=== PATIENT | female | born 1965 | race Two or more races ===

== ENCOUNTER 2020-05-15 21:11 | Observation (INO) | payer SELFPAY ==
[~2020-05-15] VITALS: Ht 157.5 cm; Wt 95.0 kg
[~2020-05-15 21:11] MED LIST: AMLO-187 PO; ATOR20TA58 PO; HYDR-3164 PO; LEVO25TA4 PO; LOSA100T14 PO; METF500T16 PO; NAPR-682 PO
[2020-05-15] MEDS ORDERED: ASPIRIN CHEWABLE 81 MG TABLET. PO ONE (21:30)
[2020-05-15 21:38] LABS: BASO # 0.1 x10^3/uL (0.0-0.2); BASO % 1 % (0-3); EOS # 0.2 x10^3/uL (0.0-0.7); EOS % 2 % (0-3); HEMOGLOBIN 11.9 g/dL (12.0-15.5); LYMPH # 4.5 x10^3/uL (1.0-4.8); LYMPH % 44 % (24-48); MEAN CORPUSCULAR HEMOGLOBIN 27 pg (25-35); MEAN CORPUSCULAR HGB CONC 33 g/dL (31-37); MEAN CORPUSCULAR VOLUME 81 fL (79-100); MONO # 0.7 x10^3/uL (0.0-1.1); MONO % 7 % (0-9); NEUT # 4.6 x10^3/uL (1.8-7.7); NEUT % 46 % (31-73); PLATELET COUNT 207 x10^3/uL (140-400); RED BLOOD COUNT 4.44 x10^6/uL (3.50-5.40); RED CELL DISTRIBUTION WIDTH 15.1 % (11.5-14.5); WHITE BLOOD COUNT 10.1 x10^3/uL (4.0-11.0)
[2020-05-15 21:50] LABS: CALCIUM 9.4 mg/dL (8.5-10.1); CREATININE 1.1 mg/dL (0.6-1.0); GFR 51.4; POTASSIUM 3.4 mmol/L (3.5-5.1)
[2020-05-15 21:55] LABS: ALBUMIN/GLOBULIN RATIO 0.9 (1.0-1.7); MAGNESIUM 2.1 mg/dL (1.8-2.4); TOTAL BILIRUBIN 0.5 mg/dL (0.2-1.0); TOTAL PROTEIN 8.7 g/dL (6.4-8.2)
[2020-05-15] MEDS ORDERED: LABETALOL 20 MG/4 ML DISP.SYRIN. IVP ONE (22:00)
--- NOTE | 2020-05-15 22:03 | RAD ---
Exam performed: One view chest. Indication: Reason: chest pain / Spl. Instructions: / History: Date of Service: 05/15/2020 9:45 PM Comparison: None available. Single AP upright portable view chest findings: Cardiomediastinal silhouette is within limits of normal. No acute infiltrates, effusion or pneumotho rax is detected. The bony structures are normal. Impression: No acute cardiopulmonary process is detected. Electronically signed by: Linda Jacobo MD (05/15/2020 10:00 PM) [facility]
--- NOTE | 2020-05-15 23:05 | PHYS DOC ---
Past Medical History Past Medical History: Hypertension Past Surgical History: Cholecystectomy, Hysterectomy Smoking Status: Never Smoker Alcohol Use: None Drug Use: None Adult General Chief Complaint Chief Complaint: CHEST PAIN HPI HPI Patient is a 55 year old female with a known possible history of hypertension presenting emergency department complaining of new onset of chest pain. Patient states that she is having intermittent episodes of left anterior chest pain and left back pain for the past 3 months. However over the last 3 days feels that this is increased in severity. Patient states he woke up from sleep approximate 3 hours ago with worsening pain in left back rating to the left anterior chest. He also states that he has been associated with episodes of dizziness and nausea . Denies any fever, chills, cough. Patient states that she is been taking her antihypertensives but still noting elevated blood pressure. Review of Systems Review of Systems Constitutional: Denies fever or chills [] Eyes: Denies change in visual acuity, redness, or eye pain [] HENT: Denies nasal congestion or sore throat [] Respiratory: Denies cough or shortness of breath [] Cardiovascular: No additional information not addressed in HPI [] GI: Denies abdominal pain, nausea, vomiting, bloody stools or diarrhea [] : Denies dysuria or hematuria [] Musculoskeletal: Denies back pain or joint pain [] Integument: Denies rash or skin lesions [] Neurologic: Denies headache, focal weakness or sensory changes [] Endocrine: Denies polyuria or polydipsia [] All other systems were reviewed and found to be within normal limits, except as documented in this note. Current Medications Current Medications Current Medications Medications (Trade) Dose Ordered Sig/Diana Start Time Stop Time Status Last Admin Dose Admin Aspirin (Aspirin Chewable) 324 mg 1X ONCE 05/15/20 21:30 05/15/20 21:31 DC 05/15/20 21:44 324 MG Fentanyl Citrate (Fentanyl 2ml Vial) 50 mcg PRN Q1HR PRN 05/16/20 01:00 05/16/20 16:42 DC Info (CONTRAST GIVEN -- Rx MONITORING) 1 each PRN DAILY PRN 05/15/20 23:15 05/16/20 16:42 DC Iohexol (Omnipaque 350 Mg/ml) 80 ml 1X ONCE 05/15/20 23:15 05/15/20 23:16 DC 05/15/20 01:08 80 ML Labetalol HCl (Normodyne Iv Push) 10 mg 1X ONCE 05/15/20 22:00 05/15/20 22:01 DC 05/15/20 22:03 10 MG Ondansetron HCl (Zofran) 4 mg PRN Q8HRS PRN 05/16/20 01:00 05/16/20 16:42 DC Allergies Allergies Allergies Coded Allergies Type Severity Reaction Last Updated Verified No Known Drug Allergies 02/22/16 No Physical Exam Physical Exam Constitutional: Well developed, well nourished, no acute distress, non-toxic appearance. [] HENT: Normocephalic, atraumatic, bilateral external ears normal, oropharynx moist, no oral exudates, nose normal. [] Eyes: PERRLA, EOMI, conjunctiva normal, no discharge. [] Neck: Normal range of motion, no tenderness, supple, no stridor. [] Cardiovascular:Heart rate regular rhythm, no murmur [] Lungs & Thorax: Bilateral breath sounds clear to auscultation [] Abdomen: Bowel sounds normal, soft, no tenderness, no masses, no pulsatile masses. [] Skin: Warm, dry, no erythema, no rash. [] Back: No tenderness, no CVA tenderness. [] Extremities: No tenderness, no cyanosis, no clubbing, ROM intact, no edema. [] Neurologic: Alert and oriented X 3, normal motor function, normal sensory function, no focal deficits noted. [] Psychologic: Affect normal, judgement normal, mood normal. [] Current Patient Data Vital Signs Vital Signs Date Time Temp Pulse Resp B/P (MAP) Pulse Ox O2 Delivery O2 Flow Rate FiO2 05/16/20 01:20 70 16 161/70 (100) 96 Room Air 05/15/20 21:19 98.2 98.2 Lab Values Laboratory Tests Test 05/15/20 21:28 05/15/20 22:13 05/16/20 00:24 White Blood Count 10.1 x10^3/uL (4.0-11.0) Red Blood Count 4.44 x10^6/uL (3.50-5.40) Hemoglobin 11.9 g/dL (12.0-15.5) L Hematocrit 36.0 % (36.0-47.0) Mean Corpuscular Volume 81 fL (79-100) Mean Corpuscular Hemoglobin 27 pg (25-35) Mean Corpuscular Hemoglobin Concent 33 g/dL (31-37) Red Cell Distribution Width 15.1 % (11.5-14.5) H Platelet Count 207 x10^3/uL (140-400) Neutrophils (%) (Auto) 46 % (31-73) Lymphocytes (%) (Auto) 44 % (24-48) Monocytes (%) (Auto) 7 % (0-9) Eosinophils (%) (Auto) 2 % (0-3) Basophils (%) (Auto) 1 % (0-3) Neutrophils # (Auto) 4.6 x10^3/uL (1.8-7.7) Lymphocytes # (Auto) 4.5 x10^3/uL (1.0-4.8) Monocytes # (Auto) 0.7 x10^3/uL (0.0-1.1) Eosinophils # (Auto) 0.2 x10^3/uL (0.0-0.7) Basophils # (Auto) 0.1 x10^3/uL (0.0-0.2) D-Dimer (Yue) 0.88 ug/mlFEU (0.00-0.50) H Sodium Level 142 mmol/L (136-145) Potassium Level 3.4 mmol/L (3.5-5.1) L Chloride Level 103 mmol/L (98-107) Carbon Dioxide Level 26 mmol/L (21-32) Anion Gap 13 (6-14) Blood Urea Nitrogen 18 mg/dL (7-20) Creatinine 1.1 mg/dL (0.6-1.0) H Estimated GFR (Cockcroft-Gault) 51.4 BUN/Creatinine Ratio 16 (6-20) Glucose Level 115 mg/dL (70-99) H Calcium Level 9.4 mg/dL (8.5-10.1) Magnesium Level 2.1 mg/dL (1.8-2.4) Total Bilirubin 0.5 mg/dL (0.2-1.0) Aspartate Amino Transferase (AST) 25 U/L (15-37) Alanine Aminotransferase (ALT) 31 U/L (14-59) Alkaline Phosphatase 126 U/L (46-116) H Troponin I Quantitative < 0.017 ng/mL (0.000-0.055) < 0.017 ng/mL (0.000-0.055) Total Protein 8.7 g/dL (6.4-8.2) H Albumin 4.0 g/dL (3.4-5.0) Albumin/Globulin Ratio 0.9 (1.0-1.7) L Lipase 98 U/L (73-393) POC Troponin I 0.02 ng/ml (<0.08) Laboratory Tests 05/15/20 21:28 Laboratory Tests 05/15/20 21:28 EKG EKG [] Radiology/Procedures Radiology/Procedures [] Course & Med Decision Making Course & Med Decision Making Pertinent Labs and Imaging studies reviewed. (See chart for details) 55-year-old female presenting with new onset of left anterior chest pain. Did h ave some pleurisy. No significant left anterior chest wall tenderness. Appears well but noted to have acute hypertension. Will obtain labs, ACS work-up make sure there is no evidence of hypertensive emergency, ACS or pulmonary embolism. Dragon Disclaimer Dragon Disclaimer This electronic medical record was generated, in whole or in part, using a voice recognition dictation system. Departure Departure Disposition: 09 ADMITTED INPT THIS HOSP Condition: GOOD Referrals: NO PCP (PCP) Scripts Metoprolol Tartrate (METOPROLOL TARTRATE) 25 Mg Tablet 1 TAB PO BID for HTN, palpitations for 30 Days, #60 TAB 5 Refills Prov: EMILY BARRIOS MD 05/16/20 ADITHYA NASCIMENTO MD May 15, 2020 23:05
[2020-05-15] MEDS ORDERED: IOHEXOL 350 MG/ML 100 ML VIAL. IV ONE (23:15)
[2020-05-15] MEDS ORDERED: CONTRAST GIVEN. MC PRN (23:15)
--- NOTE | 2020-05-15 23:51 | RAD ---
Exam: CT of chest with contrast INDICATION: Chest pain TECHNIQUE: Sequential axial images through the chest obtained following the administration of 80 mL o f Omni 350 IV contrast. Sagittal and coronal reformatted images were reconstructed from the axial felix a and reviewed. 3-D reformatted images were reconstructed from the axial data and reviewed. Comparisons: Chest x-ray same day FINDINGS: Visualized portions of the thyroid are unremarkable. No enlarged mediastinal lymph nodes are identifi ed. Heart size is normal. No pericardial effusion. Thoracic aorta has a normal course and caliber. Pulmon julián artery is not enlarged. No pulmonary embolus identified within the main, lobar or segmental pulmo nary airway is patent. Airways are patent. No No consolidation or pneumothorax. No suspicious pulmonary nodules. No pleural effusion or thickening. No suspicious osseous lesions or acute fractures. IMPRESSION: No pulmonary embolus identified within the main, lobar or segmental pulmonary arteries. Exposure: One or more of the following in the visualized dose reduction techniques were utilized for this examination: 1. Automated exposure control 2. Adjustment of the MA and/or KV according to patient size 3. Use of iterative of reconstructive technique Electronically signed by: Yamile Valentino MD (05/15/2020 11:49 PM) [facility]
[2020-05-16] MEDS ORDERED: fentaNYL PF VIAL 100 MCG/2 ML VIAL IV PRN (01:00)
[2020-05-16] MEDS ORDERED: ONDANSETRON PF 4 MG/2 ML VIAL. IV PRN (01:00)
[2020-05-16 04:00] VITALS: BP 135/72
[2020-05-16 07:00] VITALS: BP 139/65
[2020-05-16] MEDS ORDERED: DEXTROSE 50% 25 GM / 50ML DISP.SYRIN. IV PRN (08:15)
--- NOTE | 2020-05-16 08:18 | PDOC1 ---
History and Physical Date of Admission Date of Admission DATE: 05/16/20 TIME: 08:11 Identification/Chief Complaint Chief Complaint Chest pain Source Source: Patient History of Present Illness History of Present Illness Ms Knowles is a 54 year [id number] female past medical history hypertension presents with a chief complaint of chest pain. Patient states that she is having intermittent episodes of left anterior chest pain and left back pain for the past 3 months. However over the last 3 days feels that this is increased in severity. Patient states he woke up from sleep approximate 3 hours ago with worsening pain in left back rating to the left anterior chest. He also states that he has been associated with episodes of dizziness and nausea. Denies any fever, chills, cough. Patient states that she is been taking her antihypertensives but still noting elevated blood pressure. Her pain on this admission is positional and worsens with movement of her arms. She was seen and treated for the same on 03/15/2020 EKG with Sinus rhythm rate of 94 bpm normal intervals leftward axis no significant ST segment changes no T wave inversions. Compared to prior no longer in SVT. Labs WNL except d dimer was elevated. Chest radiograph with no acute abnormality. CTPA negative for acute PE Blood pressure 215/142. Improved with labetalol Admitted overnight for observation and 3 - troponins. Chest pain resolved. Back Pain is improved with application of Lidoderm patch. She notes she has outpatient follow-up with cardiology tomorrow. I discussed initiating a beta- gabriele low-dose metoprolol 12.5 mg twice daily. Past Medical History Cardiovascular: HTN Past Surgical History Past Surgical History: Hysterectomy Family History Family History: Hypertension Social History Smoke: No ALCOHOL: none Drugs: None Current Medications Current Medications Current Medications Aspirin (Aspirin Chewable) 324 mg 1X ONCE PO Last administered on 05/15/20at 21:44; Start 05/15/20 at 21:30; Stop 05/15/20 at 21:31; Status DC Labetalol HCl (Normodyne Iv Push) 10 mg 1X ONCE IVP Last administered on 05/15/20at 22:03; Start 05/15/20 at 22:00; Stop 05/15/20 at 22:01; Status DC Iohexol (Omnipaque 350 Mg/ml) 80 ml 1X ONCE IV Last administered on 05/15/20at 01:08; Start 05/15/20 at 23:15; Stop 05/15/20 at 23:16; Status DC Info (CONTRAST GIVEN -- Rx MONITORING) 1 each PRN DAILY PRN MC SEE COMMENTS; Start 05/15/20 at 23:15; Stop 05/17/20 at 23:14 Ondansetron HCl (Zofran) 4 mg PRN Q8HRS PRN IV NAUSEA/VOMITING; Start 05/16/20 at 01:00; Stop 05/17/20 at 00:59 Fentanyl Citrate (Fentanyl 2ml Vial) 50 mcg PRN Q1HR PRN IV PAIN; Start 05/16/20 at 01:00; Stop 05/17/20 at 00:59 Active Scripts Active [place] 5-325 Tablet (Acetaminophen/Hydrocodone Bitart) 1 Each Tablet 1 Tab PO PRN Q6HRS PRN Anaprox Ds (Naproxen Sodium) 550 Mg Tablet 550 Mg PO Q12HR Metformin Hcl 500 Mg Tablet 500 Mg PO BIDWMEALS 90 Days Levothyroxine Sodium 25 Mcg Tablet 25 Mcg PO DAILY06 90 Days Amlodipine Besylate 10 Mg Tablet 10 Mg PO DAILY 90 Days Atorvastatin Calcium 20 Mg Tablet 20 Mg PO QHS 90 Days Reported Losartan Potassium 100 Mg Tablet 100 Mg PO DAILY Allergies Allergies: Coded Allergies: No Known Drug Allergies (Unverified , 02/22/16) ROS General: No: Chills, Night Sweats, Fatigue, Malaise, Appetite, Other PSYCHOLOGICAL ROS: No: Anxiety, Behavioral Disorder, Concentration difficultie, Decreased libido, Depression, Disorientation, Hallucinations, Hostility, Irritablity, Memory difficulties, Mood Swings, Obsessive thoughts, Physical abuse, Sexual abuse, Sleep disturbances, Suicidal ideation, Other Eyes: No Blurry vision, No Decreased vision, No Double vision, No Dry eyes, No Excessive tearing, No Eye Pain, No Itchy Eyes, No Loss of vision, No Photophobia, No Scotomata, No Uses contacts, No Uses glasses, No Other HEENT: No: Heacaches, Visual Changes, Hearing change, Nasal congestion, Nasal discharge, Oral lesions, Sinus pain, Sore Throat, Epistaxis, Sneezing, Snoring, Tinnitus, Vertigo, Vocal changes, Other ALLERGY AND IMMUNOLOGY: No: Hives, Insect Bite Sensitivity, Itchy/Watery Eyes, Nasal Congestion, Post Nasal Drip, Seasonal Allergies, Other Hematological and Lymphatic: No: Bleeding Problems, Blood Clots, Blood Transfusions, Brusing, Night Sweats, Pallor, Swollen Lymph Nodes, Other ENDOCRINE: No: Breast Changes, Galactorrhea, Hair Pattern Changes, Hot Flashes, Malaise/lethargy, Mood Swings, Palpitations, Polydipsia/polyuria, Skin Changes, Temperature Intolerance, Unexpected Weight Changes, Other Breast: No New/Changing Breast Lumps, No Nipple changes, No Nipple discharge, No Other Respiratory: No: Cough, Hemoptysis, Orthopnea, Pleuritic Pain, Shortness of breath, SOB with excertion, Sputum Changes, Stridor, Tachypnea, Wheezing, Other Cardiovascular: yes Chest Pain; No Palpitations, No Orthopnea, No Paroxysmal Noc. Dyspnea, No Edema, No Lt Headedness, No Other Gastrointestinal: No Nausea, No Vomiting, No Abdominal Pain, No Diarrhea, No Constipation, No Melena, No Hematochezia, No Other Genitourinary: No Dysuria, No Frequency, No Incontinence, No Hematuria, No Retention, No Discharge, No Urgency, No Pain, No Flank Pain, No Other, No , No , No , No , No , No , No Musculoskeletal: No Gait Disturbance, No Joint Pain, No Joint Stiffness, No Joint Swelling, No Muscle Pain, No Muscular Weakness, No Pain In:, No Swelling In:, No Other Neurological: No Behavorial Changes, No Bowel/Bladder ControlChng, No Confusion, No Dizziness, No Gait Disturbance, No Headaches, No Impaired Coord/balance, No Memory Loss, No Numbness/Tingling, No Seizures, No Speech Problems, No Tremors, No Visual Changes, No Weakness, No Other Skin: No Dry Skin, No Eczema, No Hair Changes, No Lumps, No Mole Changes, No Mottling, No Nail Changes, No Pruritus, No Rash, No Skin Lesion Changes, No Other, No Acne Physical Exam General: Alert, Oriented X3, Cooperative, No acute distress HEENT: Atraumatic, PERRLA, EOMI, Mucous membr. moist/pink Lungs: Clear to auscultation, Normal air movement Abdomen: Normal bowel sounds, Soft, No tenderness, No hepatosplenomegaly, No masses Rectal Exam: not examined Extremities: No clubbing, No cyanosis, No edema, Normal pulses, No tenderness/ swelling Skin: No rashes, No breakdown, No significant lesion Neuro: Normal gait, Normal speech, Strength at 5/5 X4 ext, Normal tone, Sensation intact, Cranial nerves 3-12 NL, Reflexes 2+ Psych/Mental Status: Mental status NL, Mood NL Vitals Vitals Vital Signs Date Time Temp Pulse Resp B/P (MAP) Pulse Ox O2 Delivery O2 Flow Rate FiO2 05/16/20 05:34 Room Air 05/16/20 04:00 69 18 135/72 (93) 99 05/15/20 21:19 98.2 98.2 Labs Labs Laboratory Tests Test 05/15/20 21:28 05/15/20 22:13 05/16/20 00:24 05/16/20 03:15 White Blood Count 10.1 x10^3/uL (4.0-11.0) Red Blood Count 4.44 x10^6/uL (3.50-5.40) Hemoglobin 11.9 g/dL (12.0-15.5) Hematocrit 36.0 % (36.0-47.0) Mean Corpuscular Volume 81 fL (79-100) Mean Corpuscular Hemoglobin 27 pg (25-35) Mean Corpuscular Hemoglobin Concent 33 g/dL (31-37) Red Cell Distribution Width 15.1 % (11.5-14.5) Platelet Count 207 x10^3/uL (140-400) Neutrophils (%) (Auto) 46 % (31-73) Lymphocytes (%) (Auto) 44 % (24-48) Monocytes (%) (Auto) 7 % (0-9) Eosinophils (%) (Auto) 2 % (0-3) Basophils (%) (Auto) 1 % (0-3) Neutrophils # (Auto) 4.6 x10^3/uL (1.8-7.7) Lymphocytes # (Auto) 4.5 x10^3/uL (1.0-4.8) Monocytes # (Auto) 0.7 x10^3/uL (0.0-1.1) Eosinophils # (Auto) 0.2 x10^3/uL (0.0-0.7) Basophils # (Auto) 0.1 x10^3/uL (0.0-0.2) D-Dimer (Yue) 0.88 ug/mlFEU (0.00-0.50) Sodium Level 142 mmol/L (136-145) Potassium Level 3.4 mmol/L (3.5-5.1) Chloride Level 103 mmol/L (98-107) Carbon Dioxide Level 26 mmol/L (21-32) Anion Gap 13 (6-14) Blood Urea Nitrogen 18 mg/dL (7-20) Creatinine 1.1 mg/dL (0.6-1.0) Estimated GFR (Cockcroft-Gault) 51.4 BUN/Creatinine Ratio 16 (6-20) Glucose Level 115 mg/dL (70-99) Calcium Level 9.4 mg/dL (8.5-10.1) Magnesium Level 2.1 mg/dL (1.8-2.4) Total Bilirubin 0.5 mg/dL (0.2-1.0) Aspartate Amino Transf (AST/SGOT) 25 U/L (15-37) Alanine Aminotransferase (ALT/SGPT) 31 U/L (14-59) Alkaline Phosphatase 126 U/L (46-116) Troponin I Quantitative < 0.017 ng/mL (0.000-0.055) < 0.017 ng/mL (0.000-0.055) < 0.017 ng/mL (0.000-0.055) Total Protein 8.7 g/dL (6.4-8.2) Albumin 4.0 g/dL (3.4-5.0) Albumin/Globulin Ratio 0.9 (1.0-1.7) Lipase 98 U/L (73-393) Bedside Troponin I 0.02 ng/ml (<0.08) Laboratory Tests Test 05/15/20 21:28 05/15/20 22:13 05/16/20 00:24 05/16/20 03:15 White Blood Count 10.1 x10^3/uL (4.0-11.0) Red Blood Count 4.44 x10^6/uL (3.50-5.40) Hemoglobin 11.9 g/dL (12.0-15.5) Hematocrit 36.0 % (36.0-47.0) Mean Corpuscular Volume 81 fL (79-100) Mean Corpuscular Hemoglobin 27 pg (25-35) Mean Corpuscular Hemoglobin Concent 33 g/dL (31-37) Red Cell Distribution Width 15.1 % (11.5-14.5) Platelet Count 207 x10^3/uL (140-400) Neutrophils (%) (Auto) 46 % (31-73) Lymphocytes (%) (Auto) 44 % (24-48) Monocytes (%) (Auto) 7 % (0-9) Eosinophils (%) (Auto) 2 % (0-3) Basophils (%) (Auto) 1 % (0-3) Neutrophils # (Auto) 4.6 x10^3/uL (1.8-7.7) Lymphocytes # (Auto) 4.5 x10^3/uL (1.0-4.8) Monocytes # (Auto) 0.7 x10^3/uL (0.0-1.1) Eosinophils # (Auto) 0.2 x10^3/uL (0.0-0.7) Basophils # (Auto) 0.1 x10^3/uL (0.0-0.2) D-Dimer (Yue) 0.88 ug/mlFEU (0.00-0.50) Sodium Level 142 mmol/L (136-145) Potassium Level 3.4 mmol/L (3.5-5.1) Chloride Level 103 mmol/L (98-107) Carbon Dioxide Level 26 mmol/L (21-32) Anion Gap 13 (6-14) Blood Urea Nitrogen 18 mg/dL (7-20) Creatinine 1.1 mg/dL (0.6-1.0) Estimated GFR (Cockcroft-Gault) 51.4 BUN/Creatinine Ratio 16 (6-20) Glucose Level 115 mg/dL (70-99) Calcium Level 9.4 mg/dL (8.5-10.1) Magnesium Level 2.1 mg/dL (1.8-2.4) Total Bilirubin 0.5 mg/dL (0.2-1.0) Aspartate Amino Transf (AST/SGOT) 25 U/L (15-37) Alanine Aminotransferase (ALT/SGPT) 31 U/L (14-59) Alkaline Phosphatase 126 U/L (46-116) Troponin I Quantitative < 0.017 ng/mL (0.000-0.055) < 0.017 ng/mL (0.000-0.055) < 0.017 ng/mL (0.000-0.055) Total Protein 8.7 g/dL (6.4-8.2) Albumin 4.0 g/dL (3.4-5.0) Albumin/Globulin Ratio 0.9 (1.0-1.7) Lipase 98 U/L (73-393) Bedside Troponin I 0.02 ng/ml (<0.08) Images Images Chest radiograph: Cardiomediastinal silhouette is within limits of normal. No acute infiltrates, effusion or pneumothorax is detected. The bony structures are normal. Impression: No acute cardiopulmonary process is detected. CTPA: Visualized portions of the thyroid are unremarkable. No enlarged mediastinal lymph nodes are identified. Heart size is normal. No pericardial effusion. Thoracic aorta has a normal course and caliber. Pulmonary artery is not enlarged. No pulmonary embolus identified within the main, lobar or segmental pulmonary airway is patent. Airways are patent. No No consolidation or pneumothorax. No suspicious pulmonary nodules. No pleural effusion or thickening. No suspicious osseous lesions or acute fractures. IMPRESSION: No pulmonary embolus identified within the main, lobar or segmental pulmonary arteries. VTE Prophylaxis Ordered VTE Prophylaxis Devices: No VTE Pharmacological Prophylaxi: Yes Assessment/Plan Assessment/Plan A/P: Hypertensive emergency - improved with IV labetalol. Amlodipine inadequate, added metoprolol with improvement. Diabetes - newly diagnosed. If no need for contrast dye metformin with meals is indicated. Will continue at home Hypothyroidism - newly diagnosed. Will initiate levothyroxie 25mcg daily and repeat TSH in 12 weeks Morbid obesity -counseled on weight loss, diet, exercise Anemia - mild, likely iron deficient. Hypokalemia - replaced, normal mag. Back pain - negative for PE, improved with lidoderm patch. This is MSK pain FEN - ADA diet PPX - Lovenox FULL CODE Dispo - BP improved after addition of metoprolol. D/w patient diabetic education via [employer]. Ok for home today. Prior Echo: The left ventricle is normal size. The left ventricular systolic function is normal and the ejection fraction is within normal range. The Ejection Fraction is 55-60%. There is borderline concentric left ventricular hypertrophy. Doppler and Color Flow revealed no significant aortic regurgitation. There is no significant aortic valvular stenosis. Doppler and Color-flow revealed trace mitral regurgitation. Justifications for Admission Other Justification EMILY BARRIOS MD May 16, 2020 08:18
[2020-05-16] MEDS ORDERED: amLODIPine BESYLATE 10 MG TABLET PO SCH (09:00)
[2020-05-16] MEDS ORDERED: LEVOTHYROXINE 25 MCG TABLET. PO SCH (10:30)
[2020-05-16 11:00] VITALS: BP 141/57
[2020-05-16] MEDS ORDERED: INSULIN LISPRO 300 UNITS/3 ML VIAL. SQ SCH (12:00)
[2020-05-16] MEDS ORDERED: METO25TA4 PO (12:10)
[2020-05-16 12:15] VITALS: BP 141/57
[2020-05-16] MEDS ORDERED: METOPROLOL TART IMMED RELEASE 25 MG TABLET. PO ONE (12:15)
[2020-05-16] MEDS ORDERED: LIDOCAINE (700MG/PATCH) PATCH. TD SCH (12:30)
--- NOTE | 2020-05-16 12:45 | PDOC3 ---
Discharge Summary Visit Information Date of Admission: May 16, 2020 Date of Discharge: May 16, 2020 Admitting Diagnosis: Chest pain Final Diagnosis Chest pain Brief Hospital Course Allergies Allergies Coded Allergies Type Severity Reaction Last Updated Verified No Known Drug Allergies 02/22/16 No Vital Signs Vital Signs Date Time Temp Pulse Resp B/P (MAP) Pulse Ox O2 Delivery O2 Flow Rate FiO2 05/16/20 09:46 73 139/69 05/16/20 05:34 Room Air 05/16/20 04:00 18 99 05/15/20 21:19 98.2 98.2 Lab Results Laboratory Tests Test 05/15/20 21:28 05/15/20 22:13 05/16/20 00:24 05/16/20 03:15 White Blood Count 10.1 x10^3/uL (4.0-11.0) Red Blood Count 4.44 x10^6/uL (3.50-5.40) Hemoglobin 11.9 g/dL (12.0-15.5) Hematocrit 36.0 % (36.0-47.0) Mean Corpuscular Volume 81 fL (79-100) Mean Corpuscular Hemoglobin 27 pg (25-35) Mean Corpuscular Hemoglobin Concent 33 g/dL (31-37) Red Cell Distribution Width 15.1 % (11.5-14.5) Platelet Count 207 x10^3/uL (140-400) Neutrophils (%) (Auto) 46 % (31-73) Lymphocytes (%) (Auto) 44 % (24-48) Monocytes (%) (Auto) 7 % (0-9) Eosinophils (%) (Auto) 2 % (0-3) Basophils (%) (Auto) 1 % (0-3) Neutrophils # (Auto) 4.6 x10^3/uL (1.8-7.7) Lymphocytes # (Auto) 4.5 x10^3/uL (1.0-4.8) Monocytes # (Auto) 0.7 x10^3/uL (0.0-1.1) Eosinophils # (Auto) 0.2 x10^3/uL (0.0-0.7) Basophils # (Auto) 0.1 x10^3/uL (0.0-0.2) D-Dimer (Yue) 0.88 ug/mlFEU (0.00-0.50) Sodium Level 142 mmol/L (136-145) Potassium Level 3.4 mmol/L (3.5-5.1) Chloride Level 103 mmol/L (98-107) Carbon Dioxide Level 26 mmol/L (21-32) Anion Gap 13 (6-14) Blood Urea Nitrogen 18 mg/dL (7-20) Creatinine 1.1 mg/dL (0.6-1.0) Estimated GFR (Cockcroft-Gault) 51.4 BUN/Creatinine Ratio 16 (6-20) Glucose Level 115 mg/dL (70-99) Calcium Level 9.4 mg/dL (8.5-10.1) Magnesium Level 2.1 mg/dL (1.8-2.4) Total Bilirubin 0.5 mg/dL (0.2-1.0) Aspartate Amino Transf (AST/SGOT) 25 U/L (15-37) Alanine Aminotransferase (ALT/SGPT) 31 U/L (14-59) Alkaline Phosphatase 126 U/L (46-116) Troponin I Quantitative < 0.017 ng/mL (0.000-0.055) < 0.017 ng/mL (0.000-0.055) < 0.017 ng/mL (0.000-0.055) Total Protein 8.7 g/dL (6.4-8.2) Albumin 4.0 g/dL (3.4-5.0) Albumin/Globulin Ratio 0.9 (1.0-1.7) Lipase 98 U/L (73-393) Bedside Troponin I 0.02 ng/ml (<0.08) Test 05/16/20 07:05 05/16/20 11:39 Troponin I Quantitative < 0.017 ng/mL (0.000-0.055) Glucose (Fingerstick) 99 mg/dL (70-99) Laboratory Tests Test 05/15/20 21:28 05/15/20 22:13 05/16/20 00:24 05/16/20 03:15 White Blood Count 10.1 x10^3/uL (4.0-11.0) Red Blood Count 4.44 x10^6/uL (3.50-5.40) Hemoglobin 11.9 g/dL (12.0-15.5) Hematocrit 36.0 % (36.0-47.0) Mean Corpuscular Volume 81 fL (79-100) Mean Corpuscular Hemoglobin 27 pg (25-35) Mean Corpuscular Hemoglobin Concent 33 g/dL (31-37) Red Cell Distribution Width 15.1 % (11.5-14.5) Platelet Count 207 x10^3/uL (140-400) Neutrophils (%) (Auto) 46 % (31-73) Lymphocytes (%) (Auto) 44 % (24-48) Monocytes (%) (Auto) 7 % (0-9) Eosinophils (%) (Auto) 2 % (0-3) Basophils (%) (Auto) 1 % (0-3) Neutrophils # (Auto) 4.6 x10^3/uL (1.8-7.7) Lymphocytes # (Auto) 4.5 x10^3/uL (1.0-4.8) Monocytes # (Auto) 0.7 x10^3/uL (0.0-1.1) Eosinophils # (Auto) 0.2 x10^3/uL (0.0-0.7) Basophils # (Auto) 0.1 x10^3/uL (0.0-0.2) D-Dimer (Yue) 0.88 ug/mlFEU (0.00-0.50) Sodium Level 142 mmol/L (136-145) Potassium Level 3.4 mmol/L (3.5-5.1) Chloride Level 103 mmol/L (98-107) Carbon Dioxide Level 26 mmol/L (21-32) Anion Gap 13 (6-14) Blood Urea Nitrogen 18 mg/dL (7-20) Creatinine 1.1 mg/dL (0.6-1.0) Estimated GFR (Cockcroft-Gault) 51.4 BUN/Creatinine Ratio 16 (6-20) Glucose Level 115 mg/dL (70-99) Calcium Level 9.4 mg/dL (8.5-10.1) Magnesium Level 2.1 mg/dL (1.8-2.4) Total Bilirubin 0.5 mg/dL (0.2-1.0) Aspartate Amino Transf (AST/SGOT) 25 U/L (15-37) Alanine Aminotransferase (ALT/SGPT) 31 U/L (14-59) Alkaline Phosphatase 126 U/L (46-116) Troponin I Quantitative < 0.017 ng/mL (0.000-0.055) < 0.017 ng/mL (0.000-0.055) < 0.017 ng/mL (0.000-0.055) Total Protein 8.7 g/dL (6.4-8.2) Albumin 4.0 g/dL (3.4-5.0) Albumin/Globulin Ratio 0.9 (1.0-1.7) Lipase 98 U/L (73-393) Bedside Troponin I 0.02 ng/ml (<0.08) Test 05/16/20 07:05 05/16/20 11:39 Troponin I Quantitative < 0.017 ng/mL (0.000-0.055) Glucose (Fingerstick) 99 mg/dL (70-99) Brief Hospital Course Ms Knowles is a 54 year oldypl-[id number] female past medical history hypertension presents with a chief complaint of chest pain. Patient states that she is having intermittent episodes of left anterior chest pain and left back pain for the past 3 months. However over the last 3 days feels that this is increased in severity. Patient states he woke up from sleep approximate 3 hours ago with worsening pain in left back rating to the left anterior chest. He also states that he has been associated with episodes of dizziness and nausea. Denies any fever, chills, cough. Patient states that she is been taking her antihypertensives but still noting elevated blood pressure. Her pain on this admission is positional and worsens with movement of her arms. She was seen and treated for the same on 03/15/2020 EKG with Sinus rhythm rate of 94 bpm normal intervals leftward axis no significant ST segment changes no T wave inversions. Compared to prior no longer in SVT. Labs WNL except d dimer was elevated. Chest radiograph with no acute abnormality. CTPA negative for acute PE Blood pressure 215/142. Improved with labetalol Admitted overnight for observation and 3 - troponins. Chest pain resolved. Back Pain is improved with application of Lidoderm patch. She notes she has outpatient follow-up with cardiology tomorrow. I discussed initiating a beta- gabriele low-dose metoprolol 12.5 mg twice daily. Problem list: Hypertensive emergency - improved with IV labetalol. Amlodipine inadequate, added metoprolol with improvement. Diabetes - newly diagnosed. If no need for contrast dye metformin with meals is indicated. Will continue at home Hypothyroidism - newly diagnosed. Will initiate levothyroxie 25mcg daily and repeat TSH in 12 weeks Morbid obesity -counseled on weight loss, diet, exercise Anemia - mild, likely iron deficient. Hypokalemia - replaced, normal mag. Back pain - negative for PE, improved with lidoderm patch. This is MSK pain Dispo - BP improved after addition of metoprolol. D/w patient education via [employer] phone services. Ok for home today. Prior Echo: The left ventricle is normal size. The left ventricular systolic function is normal and the ejection fraction is within normal range. The Ejection Fraction is 55-60%. There is borderline concentric left ventricular hypertrophy. Doppler and Color Flow revealed no significant aortic regurgitation. There is no significant aortic valvular stenosis. Doppler and Color-flow revealed trace mitral regurgitation. Greater than 70 minutes spent on same day admit and d/c home with self care. Discharge Information Condition at Discharge: Improved Follow Up: Weeks Disposition/Orders: D/C to Home Scheduled Amlodipine Besylate (Amlodipine Besylate) 10 Mg Tablet, 10 MG PO DAILY for HTN for 90 Days, #90 Ref 1 Prescribed by: EMILY BARRIOS MD on 03/17/20907 Last Action: Continued on 05/16/20814 by EMILY BARRIOS MD Atorvastatin Calcium (Atorvastatin Calcium) 20 Mg Tablet, 20 MG PO QHS for DM2/HLD for 90 Days, #90 Ref 3 Prescribed by: EMILY BARRIOS MD on 03/17/20907 Last Action: Continued on 05/16/20814 by EMILY BARRIOS MD Levothyroxine Sodium (Levothyroxine Sodium) 25 Mcg Tablet, 25 MCG PO DAILY06 for Hypothyroidism for 90 Days, #90 Ref 1 Prescribed by: EMILY BARRIOS MD on 03/17/20907 Last Action: Continued on 05/16/20814 by EMILY BARRIOS MD Metformin Hcl (Metformin Hcl) 500 Mg Tablet, 500 MG PO BIDWMEALS for ANTI- DIABETIC for 90 Days, #180 Ref 1 Prescribed by: EMILY BARRIOS MD on 11/25/20 0908 Last Action: HELD on 05/16/20 0814 by EMILY BARRIOS MD Metoprolol Tartrate (Metoprolol Tartrate) 25 Mg Tablet, 1 TAB PO BID for HTN, palpitations for 30 Days, #60 Ref 5 Prescribed by: EMILY BARRIOS MD on 05/16/20 1210 Naproxen Sodium (Anaprox Ds) 550 Mg Tablet, 550 MG PO Q12HR, #20 Prescribed by: ANDRÉS MARTIN on 02/22/162054 Scheduled PRN Hydrocodone/Apap 5-325 ([place] 5-325 Tablet) 1 Each Tablet, 1 TAB PO PRN Q6HRS PRN for PAIN, #10 Prescribed by: ANDRÉS MARTIN on 02/22/162054 Discontinued Medications Losartan Potassium (Losartan Potassium) 100 Mg Tablet, 100 MG PO DAILY for HYPERTENSION, (Reported) Entered as Reported by: MAULIK SANTACRUZ on 03/16/20 0802 Justicifation of Admission Dx: Justifications for Admission: Justification of Admission Dx: Yes EMILY BARRIOS MD May 16, 2020 12:45
--- NOTE | 2020-05-16 15:15 | NUR ---
Discharge Note: Patient was discharged home with self care. 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 Patient was given discharge summary/instructions, follow-ups, and educational material. RN explained discharge instructions to patient, in patients primary language Swedish. Patient did not have any further questions or concerns. Patient decided to ambulate to the ER entrance with all personal belongings accompanied by KATEY Caceres, where patients family was waiting for her to take her home.
[2020-05-16] MEDS ORDERED: METOPROLOL TART IMMED RELEASE 25 MG TABLET. PO SCH (21:00)
[2020-05-16] MEDS ORDERED: PATCH REMOVAL. MC SCH (21:00)
[2020-05-16] MEDS ORDERED: ATORVASTATIN CALCIUM 20 MG TABLET PO SCH (21:00)
--- NOTE | 2020-05-17 10:11 | EKG ---
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
== END 2020-05-16 15:15 | disposition home or self-care (01) ==
LOC: ER 21:11 → 5 NORTH 05-16 01:23
PROVIDERS: ADMIT Family Medicine; ATTEND Family Medicine
DX: I16.1 Hypertensive emergency (principal); E11.9 Type 2 diabetes mellitus without complications; E03.9 Hypothyroidism, unspecified; E66.01 Morbid (severe) obesity due to excess calories; D64.9 Anemia, unspecified; E87.6 Hypokalemia; I11.9 Hypertensive heart disease without heart failure; E61.1 Iron deficiency; Z90.710 Acquired absence of both cervix and uterus; Z79.82 Long term (current) use of aspirin; Z79.899 Other long term (current) drug therapy; Z79.84 Long term (current) use of oral hypoglycemic drugs; Z90.49 Acquired absence of other specified parts of digestive tract; Z68.38 Body mass index [BMI] 38.0-38.9, adult
CPT/HCPCS: 36415; 71045; 71275; 80053; 82962; 83690; 83735; 84484; 85025; 85379; 93005; 96374; 99285; G0378; J1815; J3490; Q9967; G0379

== ENCOUNTER 2021-01-29 00:37 | Emergency (ER) | payer SELFPAY ==
[~2021-01-29] VITALS: Ht 157.5 cm; Wt 105.6 kg
[~2021-01-29 00:37] MED LIST changes: +METO25TA4 PO
--- NOTE | 2021-01-29 00:58 | PHYS DOC ---
Past Medical History Past Medical History: Hypertension Past Surgical History: Cholecystectomy, Hysterectomy Smoking Status: Never Smoker Alcohol Use: None Drug Use: None General Adult EDM: Chief Complaint: SHORTNESS OF BREATH HPI: HPI: Patient is a 55 year old female here with report of chest tightness and some mild dyspnea as well as elevated blood pressure. Symptoms began this evening at home. She denies active dyspnea at this time. She feels like her chest pressure is currently resolved at this time. She reports chronic and uncontrolled hypertension. She reports compliance with amlodipine and lisinopril. She reports that she has apparently discussed her chronically uncontrolled hypertension with her primary care physician, but no changes in her medications have been made. She denies dizziness, diaphoresis, abdominal pain, nausea vomiting, syncope. She denies leg pain or swelling. She denies cough, hemoptysis, fevers or chills. Denies any recent travel, hospitalization or sick contacts. Her blood pressure is markedly elevated on arrival. She reports that she has experienced similar symptoms previously, as recently as this last February, and she reports that she was told her symptoms were due to her elevated blood pressure. She did not specifically follow-up regarding any further work-up at that time per her report. Review of Systems: Review of Systems: Constitutional: Denies fever or chills. [] Eyes: Denies change in visual acuity. [] HENT: Denies nasal congestion or sore throat. [] Respiratory: Reports mild dyspnea. Denies cough or hemoptysis. Cardiovascular: Reports chest pressure GI: Denies abdominal pain, nausea, vomiting, bloody stools or diarrhea. [] : Denies urinary symptoms. Musculoskeletal: Denies back pain or joint pain. [] Integument: Denies rash. [] Neurologic: Denies headache, focal weakness or sensory changes. Denies dizziness or vertigo. Denies syncope. [] Psychiatric: Admits to some anxiety regarding her current symptoms. Denies chronic anxiety or depression symptoms. Heart Score: C/O Chest Pain: Yes HEART Score for Chest Pain: HEART Score for Chest Pain Response (Comments) Value History Slighlty/Non-Suspicious 0 ECG Nonspecific Repolarizatio 1 Age >45 - < 65 1 Risk Factors 1 or 2 Risk Factors 1 Troponin < Normal Limit 0 Total 3 Risk Factors: Risk Factors: DM, Current or recent (<one month) smoker, HTN, HLP, family history of CAD, obesity. Risk Scores: Score 0 - 3: 2.5% MACE over next 6 weeks - Discharge Home Score 4 - 6: 20.3% MACE over next 6 weeks - Admit for Clinical Observation Score 7 - 10: 72.7% MACE over next 6 weeks - Early Invasive Strategies Allergies: Allergies: Allergies Coded Allergies Type Severity Reaction Last Updated Verified No Known Drug Allergies 02/22/16 No Physical Exam: PE: Constitutional: Well developed, well nourished, no acute distress, non-toxic appearance. [] HENT: Normocephalic, atraumatic, bilateral external ears normal, oropharynx moist, no oral exudates, nose normal. [] Eyes: PERRL, EOMI, conjunctiva normal, no discharge. [] Neck: Normal range of motion, no tenderness, supple, no stridor. [] Cardiovascular: Tachycardic, regular, +2 radial and posterior tibial pulses bilaterally. Mild, symmetric, nonpitting bilateral ankle and pedal edema. Lungs & Thorax: Bilateral breath sounds clear to auscultation. No rales, rhonchi or wheezes. Equal chest rise. No respiratory distress. Abdomen: Bowel sounds normal, soft, no tenderness, no masses, no pulsatile masses. [] Skin: Warm, dry, no erythema, no rash. [] Back: No tenderness, no CVA tenderness. [] Extremities: No tenderness, no cyanosis, no clubbing, ROM intact, no calf tenderness. Neurologic: Alert and oriented X 3, normal motor function, normal sensory function, no focal deficits noted. [] Psychologic: Affect normal, judgement normal, mood normal. [] EKG: EKG: EKG read at 00 49 Rhythm is sinus tachycardia Rate is 113 bpm [place] left No STEMI Radiology/Procedures: Radiology/Procedures: IMAGING REPORT Signed PATIENT: AMANDA CALLOWAY MACCOUNT: [id number] : 1965 LOCATION: ER AGE: 55 SEX: F EXAM STATUS: PRE ER ORD. PHYSICIAN: JB FISH DO REASON: chest pain PROCEDURE: PORTABLE CHEST 1V Single view chest dated 01/29/2021 1:27 AM: COMPARISON: 05/15/2020 Clinical Indication: Chest pain. Findings: Single upright portable exam of the chest was performed. Heart and mediastinal contours are within normal limits. There is some mild patchy increased density at both lung bases. No consolidation or pleural effusion. No pneumothorax. IMPRESSION: 1. Mild patchy bibasilar opacity, likely atelectasis. Electronically signed by: João Orantes MD (01/29/2021 1:28 AM) [facility] DICTATED and SIGNED BY: JOÃO ORANTES MD DATE: 01/29/21 [id number] 0 IMAGING REPORT Signed PATIENT: AMANDA CALLOWAY MACCOUNT: [id number] : 1965 LOCATION: ER AGE: 55 SEX: F EXAM STATUS: REG ER ORD. PHYSICIAN: JB FISH DO REASON: dyspnea, chest pain, elevated D dimer, OMNI 350 100 ML IV PROCEDURE: CT ANGIOGRAPHY CHEST CTA chest with contrast dated 03/31/2021. COMPARISON: 05/15/2020 INDICATION: Chest pain and elevated d-dimer. TECHNIQUE: Contiguous axial imaging the chest performed following the intravenous administration of 100 cc Omnipaque 350. Study was performed as dedicated PE protocol with thin cut coronal MIPS 3-D reconstruction. One or more of the following individualized dose reduction techniques were utilized for this examination: 1. Automated exposure control 2. Adjustment of the mA and/or kV according to patient size 3. Use of iterative reconstruction technique FINDINGS: Contrast bolus is adequate. No evidence of central, lobar or segmental pulmonary embolus. Subsegmental branches are not well evaluated based on technique. Heart size is within normal limits. No pericardial effusion. There are borderline enlarged precarinal and right paratracheal lymph nodes measuring up to 10 mm short axis. No hilar or axillary adenopathy. Thyroid gland is unremarkable. Central airways are patent. Lungs are clear. No consolidation or pleural effusion. No pneumothorax. There are a few scattered calcified granuloma. Images of the upper abdomen are unremarkable. Gallbladder surgically absent. No acute bony abnormality. Multilevel spondylosis. IMPRESSION: 1. No evidence of central, lobar or segmental pulmonary embolus. 2. Clear lungs. 3. Borderline enlarged mediastinal lymph nodes, nonspecific. Electronically signed by: João Orantes MD (01/29/2021 5:21 AM) [facility] and SIGNED BY: JOÃO ORANTES MD DATE: 01/29/21 [id number] 0 Course & Med Decision Making: Course & Med Decision Making Pertinent Labs and Imaging studies reviewed. (See chart for details) The patient is given IV labetalol. There is significant provement in her blood pressure and heart rate. Her chest pain has spontaneously resolved. CT angio is negative for pulmonary embolus. No acute ischemia on EKG. Troponin is negative. I have discussed all of the findings, differential diagnosis and plan of care with the patient. She is resting comfortably, without complaint. She denies dyspnea. No evidence of respiratory distress or hypoxia. I have explained that she needs to follow-up with her primary care physician. I recommended that she call Sunday morning to arrange for follow-up. Will prescribe beta-gabriele for discharge home, for her to take in addition to her other antihypertensives. I recommend a low-sodium diet. She feels comfortable with the plan for discharge. Strict return precautions given. She verbalizes understanding. Abhi Disclaimer: Abhi Disclaimer: This electronic medical record was generated, in whole or in part, using a voice recognition dictation system. Departure Departure Impression: Primary Impression: Uncontrolled hypertension Additional Impression: Chest pain Disposition: 01 HOME / SELF CARE / HOMELESS Condition: STABLE Referrals: NO PCP (PCP) Patient Instructions: Hypertension Additional Instructions: Please take all of your prescribed medication as directed. Eat a low sodium diet. Return for more severe pain, difficulty breathing, passing out, weakness, fever of 100.4 or higher or any other concerns. Please call your primary care doctor on Sunday to arrange for follow up. Scripts Metoprolol Tartrate (METOPROLOL TARTRATE) 25 Mg Tablet 1 TAB PO BID, #60 TAB 5 Refills Prov: JB FISH DO 01/29/21 JB FISH DO Jan 29, 2021 00:58
[2021-01-29] MEDS ORDERED: LABETALOL 20 MG/4 ML DISP.SYRIN. IVP ONE (01:30)
[2021-01-29] MEDS ORDERED: ASPIRIN 325 MG TABLET PO ONE (01:30)
--- NOTE | 2021-01-29 01:30 | RAD ---
Single view chest dated 01/29/2021 1:27 AM: COMPARISON: 05/15/2020 Clinical Indication: Chest pain. Findings: Single upright portable exam of the chest was performed. Heart and mediastinal contours are within no rmal limits. There is some mild patchy increased density at both lung bases. No consolidation or pleu ral effusion. No pneumothorax. IMPRESSION: 1. Mild patchy bibasilar opacity, likely atelectasis. Electronically signed by: João Orantes MD (01/29/2021 1:28 AM) ALDO
--- NOTE | 2021-01-29 01:55 | EKG ---
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
[2021-01-29 02:26] LABS: BASO # 0.1 x10^3/uL (0.0-0.2); BASO % 1 % (0-3); EOS # 0.4 x10^3/uL (0.0-0.7); EOS % 5 % (0-3); HEMATOCRIT 36.7 % (36.0-47.0); HEMOGLOBIN 12.3 g/dL (12.0-15.5); LYMPH # 3.8 x10^3/uL (1.0-4.8); LYMPH % 44 % (24-48); MEAN CORPUSCULAR HEMOGLOBIN 27 pg (25-35); MEAN CORPUSCULAR HGB CONC 34 g/dL (31-37); MEAN CORPUSCULAR VOLUME 82 fL (79-100); MONO # 0.8 x10^3/uL (0.0-1.1); MONO % 10 % (0-9); NEUT # 3.6 x10^3/uL (1.8-7.7); NEUT % 41 % (31-73); PLATELET COUNT 229 x10^3/uL (140-400); RED BLOOD COUNT 4.51 x10^6/uL (3.50-5.40); RED CELL DISTRIBUTION WIDTH 15.3 % (11.5-14.5); WHITE BLOOD COUNT 8.7 x10^3/uL (4.0-11.0)
[2021-01-29 02:38] LABS: CALCIUM 8.8 mg/dL (8.5-10.1); CREATININE 0.8 mg/dL (0.6-1.0); GFR 74.2; POTASSIUM 3.9 mmol/L (3.5-5.1)
[2021-01-29 02:43] LABS: ALBUMIN 3.7 g/dL (3.4-5.0); ALBUMIN/GLOBULIN RATIO 0.9 (1.0-1.7); MAGNESIUM 2.2 mg/dL (1.8-2.4); TOTAL BILIRUBIN 0.3 mg/dL (0.2-1.0)
[2021-01-29] MEDS ORDERED: CONTRAST GIVEN. MC PRN (03:45)
[2021-01-29] MEDS ORDERED: IOHEXOL 350 MG/ML 100 ML VIAL. IV ONE (04:00)
[2021-01-29 05:20] VITALS: BP 175/81
--- NOTE | 2021-01-29 05:23 | RAD ---
CTA chest with contrast dated 03/31/2021. COMPARISON: 05/15/2020 INDICATION: Chest pain and elevated d-dimer. TECHNIQUE: Contiguous axial imaging the chest performed following the intravenous administration of 100 cc Omnip aque 350. Study was performed as dedicated PE protocol with thin cut coronal MIPS 3-D reconstruction. One or more of the following individualized dose reduction techniques were utilized for this examinat ion: 1. Automated exposure control 2. Adjustment of the mA and/or kV according to patient size 3. Use of iterative reconstruction technique FINDINGS: Contrast bolus is adequate. No evidence of central, lobar or segmental pulmonary embolus. Subsegmenta l branches are not well evaluated based on technique. Heart size is within normal limits. No pericardial effusion. There are borderline enlarged precarinal and right paratracheal lymph nodes measuring up to 10 mm short axis. No hilar or axillary adenopathy . Thyroid gland is unremarkable. Central airways are patent. Lungs are clear. No consolidation or pleural effusion. No pneumothorax. T here are a few scattered calcified granuloma. Images of the upper abdomen are unremarkable. Gallbladder surgically absent. No acute bony abnormalit y. Multilevel spondylosis. IMPRESSION: 1. No evidence of central, lobar or segmental pulmonary embolus. 2. Clear lungs. 3. Borderline enlarged mediastinal lymph nodes, nonspecific. Electronically signed by: João Orantes MD (01/29/2021 5:21 AM) [facility]
[2021-01-29] MEDS ORDERED: METO25TA4 PO (05:47)
== END 2021-01-29 06:01 | disposition home or self-care (01) ==
LOC: ER 00:37
DX: I10 Essential (primary) hypertension (principal); R07.89 Other chest pain
CPT/HCPCS: 36415; 71045; 71275; 80053; 83735; 83880; 84443; 84484; 85025; 85379; 93005; 96374; 99285; J3490; Q9967